=== PATIENT | male | born 1950 | race Caucasian/White ===

== ENCOUNTER 2020-01-11 18:55 | Emergency (ER) | payer MEDICARE, BC ==
[2020-01-11] MEDS ORDERED: Sodium Chloride 0.9% 10 ML Syringe FLUSH PRN (19:07)
--- NOTE | 2020-01-11 19:33 | EDM.PDOC ---
ED HPI GENERAL MEDICAL PROBLEM - General Chief Complaint: Fever Stated Complaint: CHILLS PER PT Time Seen by Provider: 01/11/20 19:15 Source of Information: Reports: Patient, RN, RN Notes Reviewed History Limitations: Reports: No Limitations - History of Present Illness INITIAL COMMENTS - FREE TEXT/NARRATIVE: Patient presents to ER with complaint of chills, shivering uncontrollably. Patient states the chills began about 5 PM. Patient states he did take Tylenol at approximately 5:30 PM today. Patient denies any cough, shortness of breath, chest pain, nausea, vomiting, diarrhea. Patient states he has has had liver cancer in the past as well as bilateral kidney transplant. She has had his gallbladder removed. Patient states he has become septic in the past. Denies any problems with bowel movements, denies any urinary symptoms such as frequency, urgency, burning with urination. Patient states he was tested for Covid 19 about 1 month ago and that was negative. States he quarantined at home in [place] for 14 days prior to traveling to [place]. Onset: Today, Sudden Location: Reports: Generalized - Related Data Allergies Allergy/AdvReac Type Severity Reaction Status Date / Time No Known Allergies Allergy Verified 01/11/20 19:02 Home Meds: Home Meds Acetaminophen [Tylenol Extra Strength] 1,000 mg PO Q8HR PRN 01/11/20 [History] Aspirin [Halfprin] 81 mg PO DAILY 01/11/20 [History] Bumetanide [Bumex] 1 mg PO DAILY 01/11/20 [History] Doxazosin [Doxazosin Mesylate] 0.5 mg PO BEDTIME 01/11/20 [History] Famotidine 20 mg PO BID 01/11/20 [History] Fluticasone Propionate [Flonase] 2 spray .XX BID PRN 01/11/20 [History] Insulin Glargine,Hum.Rec.Anlog [Basaglar Kwikpen U-100] 20 unit SQ BID 01/11/20 [History] Pravastatin [Pravachol] 20 mg PO BEDTIME 01/11/20 [History] Tacrolimus [Envarsus Xr] 4 mg PO BID 01/11/20 [History] amLODIPine [Norvasc] 5 mg PO BID 01/11/20 [History] cloNIDine [Catapres-TTS 3] 0.3 mg .XX ASDIRECTED 01/11/20 [History] hydrALAZINE [Apresoline] 100 mg PO ASDIRECTED 01/11/20 [History] predniSONE [Prednisone] 5 mg PO DAILY 01/11/20 [History] Past Medical History HEENT History: Reports: Impaired Vision Other HEENT History: wear glasses Cardiovascular History: Reports: High Cholesterol, Hypertension Respiratory History: Reports: None Genitourinary History: Reports: Other (See Below) Other Genitourinary History: kidney transplant 2018 Endocrine/Metabolic History: Reports: Diabetes, Type II Immunologic History: Reports: None Oncologic (Cancer) History: Reports: Liver Other Oncologic History: skin cancer had removed 01/04/20, liver cancer october 2019 - Past Surgical History Head Surgeries/Procedures: Reports: None Social & Family History - Tobacco Use Smoking Status *Q: Never Smoker - Recreational Drug Use Recreational Drug Use: No ED ROS GENERAL - Review of Systems Review Of Systems: Comprehensive ROS is negative, except as noted in HPI. ED EXAM, GENERAL - Physical Exam Exam: See Below Exam Limited By: No Limitations General Appearance: Alert, WD/WN, Mild Distress (Patient chilling, shivering in bed) Eye Exam: Bilateral Eye: EOMI, Normal Inspection Ears: Normal External Exam, Hearing Grossly Normal Nose: Normal Inspection Throat/Mouth: Normal Inspection, Normal Voice, No Airway Compromise Head: Atraumatic, Normocephalic Neck: Normal Inspection, Supple, Non-Tender, Full Range of Motion Respiratory/Chest: No Respiratory Distress, Lungs Clear, Normal Breath Sounds, No Accessory Muscle Use, Chest Non-Tender Cardiovascular: Normal Peripheral Pulses, Regular Rate, Rhythm, No Edema, No Gallop, No JVD, No Murmur, No Rub Peripheral Pulses: 2+: Radial (L), Radial (R) GI/Abdominal: Normal Bowel Sounds, Soft, Non-Tender (Male) Exam: Deferred Rectal (Males) Exam: Deferred Back Exam: Normal Inspection, Full Range of Motion, NT Extremities: Normal Inspection, Normal Range of Motion, Non-Tender, No Pedal Edema, Normal Capillary Refill Neurological: Alert, Oriented, CN II-XII Intact, Normal Cognition, Normal Gait, Normal Reflexes, No Motor/Sensory Deficits Psychiatric: Normal Affect, Normal Mood Skin Exam: Warm, Dry, Intact, Normal Color, No Rash Lymphatic: No Adenopathy Course - Vital Signs Last Recorded V/S: Last Vital Signs Temp 102.5 F H 01/11/20 20:30 Pulse 91 01/11/20 19:03 Resp 20 01/11/20 19:03 BP 151/92 H 01/11/20 19:03 Pulse Ox 98 01/11/20 19:03 - Orders/Labs/Meds Orders: Active Orders 24 hr Category Date Time Status Peripheral IV Care [RC] . DIRECTED Care 01/11/20 19:08 Active CULTURE BLOOD [BC] Stat Lab 01/11/20 19:15 Results CULTURE BLOOD [BC] Stat Lab 01/11/20 19:25 Received UA RFX BUD AND CULT IF INDIC [URIN] Stat Lab 01/11/20 19:07 Ordered Sodium Chloride 0.9% [Saline Flush] Med 01/11/20 19:07 Active 10 ml FLUSH ASDIRECTED PRN Blood Culture x2 Reflex Set [OM.PC] Stat Oth 01/11/20 19:08 Ordered Peripheral IV Insertion Adult [OM.PC] Stat Oth 01/11/20 19:07 Ordered Medication Orders Sodium Chloride (Saline Flush) 10 ml FLUSH ASDIRECTED PRN PRN Reason: Keep Vein Open Last Admin: 01/11/20 19:27 Dose: 10 ml Documented by: MAGGIE Labs: Laboratory Tests 01/11/20 01/11/20 01/11/20 Range/Units 19:15 19:15 19:15 WBC 10.7 H (5.0-10.0) 10^3/uL RBC 4.27 L (4.6-6.2) 10^6/uL Hgb 11.7 L (14.0-18.0) g/dL Hct 35.4 L (40.0-54.0) % MCV 82.9 (80-100) fL MCH 27.4 (27.0-34.0) pg MCHC 33.1 (33.0-35.0) g/dL Plt Count 172 (150-450) 10^3/uL Neut % (Auto) 88.3 H (42.2-75.2) % Lymph % (Auto) 9.0 L (20.5-50.1) % Preston % (Auto) 2.2 (2-8) % Eos % (Auto) 0.4 L (1.0-3.0) % Baso % (Auto) 0.1 (0.0-1.0) % Sodium 141 (136-145) mmol/L Potassium 5.0 (3.5-5.1) mmol/L Chloride 107 (98-107) mmol/L Carbon Dioxide 21 (21-32) mmol/L Anion Gap 18.0 H (7-13) mEq/L BUN 61 H (7-18) mg/dL Creatinine 3.57 H (0.70-1.30) mg/dL Est Cr Clr Drug Dosing 20.08 mL/min Estimated GFR (MDRD) 17 BUN/Creatinine Ratio 17.1 (No establ ref range) Glucose 137 H (74-99) mg/dL Lactic Acid 1.2 (0.4-2.0) mmol/L Calcium 8.9 (8.5-10.1) mg/dL Total Bilirubin 0.6 (0.2-1.0) mg/dL AST 18 (15-37) U/L ALT 34 (16-63) U/L Alkaline Phosphatase 157 H (46-116) U/L Total Protein 7.6 (6.4-8.2) g/dL Albumin 4.2 (3.4-5.0) g/dL Globulin 3.4 Albumin/Globulin Ratio 1.2 SARS-CoV-2 RNA (RT-PCR) (NEGATIVE) 01/10/ Range/Units 20:15 WBC (5.0-10.0) 10^3/uL RBC (4.6-6.2) 10^6/uL Hgb (14.0-18.0) g/dL Hct (40.0-54.0) % MCV (80-100) fL MCH (27.0-34.0) pg MCHC (33.0-35.0) g/dL Plt Count (150-450) 10^3/uL Neut % (Auto) (42.2-75.2) % Lymph % (Auto) (20.5-50.1) % Preston % (Auto) (2-8) % Eos % (Auto) (1.0-3.0) % Baso % (Auto) (0.0-1.0) % Sodium (136-145) mmol/L Potassium (3.5-5.1) mmol/L Chloride (98-107) mmol/L Carbon Dioxide (21-32) mmol/L Anion Gap (7-13) mEq/L BUN (7-18) mg/dL Creatinine (0.70-1.30) mg/dL Est Cr Clr Drug Dosing mL/min Estimated GFR (MDRD) BUN/Creatinine Ratio (No establ ref range) Glucose (74-99) mg/dL Lactic Acid (0.4-2.0) mmol/L Calcium (8.5-10.1) mg/dL Total Bilirubin (0.2-1.0) mg/dL AST (15-37) U/L ALT (16-63) U/L Alkaline Phosphatase (46-116) U/L Total Protein (6.4-8.2) g/dL Albumin (3.4-5.0) g/dL Globulin Albumin/Globulin Ratio SARS-CoV-2 RNA (RT-PCR) Negative (NEGATIVE) Meds: Medications Generic Name Dose Route Start Last Admin Trade Name Freemelia PRN Reason Stop Dose Admin Sodium Chloride 10 ml 01/11/20 19:07 01/11/20 19:27 Saline Flush FLUSH 10 ml ASDIRECTED PRN Administration Keep Vein Open Discontinued Medications Generic Name Dose Route Start Last Admin Trade Name Freq PRN Reason Stop Dose Admin Acetaminophen 650 mg 01/11/20 20:27 01/11/20 20:30 Tylenol RECTAL 01/11/20 20:28 650 mg NOW STA Administration Acetaminophen 325 mg 01/11/20 20:28 01/11/20 20:31 Tylenol RECTAL 01/11/20 20:29 325 mg NOW ONE Administration Sodium Chloride 1,000 mls @ 999 mls/hr 01/11/20 19:49 01/11/20 20:15 Normal Saline IV 01/11/20 20:49 999 mls/hr .BOLUS ONE Infusion Piperacillin Sod/Tazobactam 100 mls @ 200 mls/hr 01/11/20 20:06 01/11/20 20:26 Sod 3.375 gm/ Sodium Chloride IV 01/11/20 20:35 200 mls/hr ONETIME ONE Administration Metoclopramide HCl 10 mg 01/11/20 20:15 01/11/20 20:24 Reglan IVPUSH 01/11/20 20:16 10 mg ONETIME ONE Administration Ondansetron HCl 4 mg 01/11/20 19:56 01/11/20 19:59 Zofran IVPUSH 01/11/20 19:57 4 mg ONETIME ONE Administration Ondansetron HCl 4 mg 01/11/20 19:57 01/11/20 20:34 Zofran IV 01/11/20 19:58 Not Given ONETIME ONE - Radiology Interpretation Free Text/Narrative:: Chest xray: PROCEDURE INFORMATION: Exam: XR Chest, 1 View Exam date and time: 01/11/2020 7:54 PM Age: 69 years old Clinical indication: Fever; Additional info: Fever/chills TECHNIQUE: Imaging protocol: XR of the chest Views: 1 view. COMPARISON: No relevant prior studies available. FINDINGS: Lungs: No suspicious pulmonary nodules or areas of lung consolidation. Pleural space: Costophrenic angles are sharp. No pneumothorax. Heart/Mediastinum: Mild cardiac silhouette enlargement. Bones/joints: Age appropriate. IMPRESSION: 1. No acute pulmonary findings. 2. Mild cardiac silhouette enlargement. Have equal down Thank you for allowing us to participate in the care of your patient. Dictated and Authenticated by: Jarad Titus MD 01/11/2020 8:10 PM Central Time ([place] & [place]) See rad report - Re-Assessments/Exams Free Text/Narrative Re-Assessment/Exam: 01/11/20 21:46 Patient's temperature continues to rise. Vomiting lessens with medications. Discussed patient case with Dr. Galvan who agreed to accept the patient for transfer to [facility]. Departure - Departure Time of Disposition: 21:47 Disposition: DC/Tfer to Acute Hospital 02 Condition: Poor Clinical Impression: Fever of unknown origin (FUO) Vomiting Qualifiers: Vomiting type: unspecified Vomiting Intractability: non-intractable Nausea presence: with nausea Qualified Code(s): R11.2 - Nausea with vomiting, u nspecified - Discharge Information *PRESCRIPTION DRUG MONITORING PROGRAM REVIEWED*: No *COPY OF PRESCRIPTION DRUG MONITORING REPORT IN PATIENT SHAHNAZ: No Forms: ED Department Discharge, Interfacility Transfer EMTALA Sepsis Event Note (ED) - Evaluation Sepsis Screening Result: No Definite Risk - Focused Exam Vital Signs: Vital Signs Temp Temp Pulse Resp BP Pulse Ox 01/11/20 20:30 102.5 F H 01/11/20 20:26 102.5 F H 01/11/20 19:03 99.7 F 91 20 151/92 H 98 - My Orders Last 24 Hours: My Active Orders 01/11/20 19:07 UA RFX BUD AND CULT IF INDIC [URIN] Stat Sodium Chloride 0.9% [Saline Flush] 10 ml FLUSH ASDIRECTED PRN Peripheral IV Insertion Adult [OM.PC] Stat 01/11/20 19:08 Peripheral IV Care [RC] . DIRECTED Blood Culture x2 Reflex Set [OM.PC] Stat 01/11/20 19:15 CULTURE BLOOD [BC] Stat 01/11/20 19:25 CULTURE BLOOD [BC] Stat - Assessment/Plan Last 24 Hours: My Active Orders 01/11/20 19:07 UA RFX BUD AND CULT IF INDIC [URIN] Stat Sodium Chloride 0.9% [Saline Flush] 10 ml FLUSH ASDIRECTED PRN Peripheral IV Insertion Adult [OM.PC] Stat 01/11/20 19:08 Peripheral IV Care [RC] . DIRECTED Blood Culture x2 Reflex Set [OM.PC] Stat 01/11/20 19:15 CULTURE BLOOD [BC] Stat 01/11/20 19:25 CULTURE BLOOD [BC] Stat
[2020-01-11] MEDS ORDERED: Sodium Chloride 0.9% 1,000 ML IV ONE (19:49)
[2020-01-11] MEDS ORDERED: Ondansetron 4 MG/2 ML SDV IVPUSH ONE (19:56)
[2020-01-11] MEDS ORDERED: Ondansetron 4 MG/2 ML SDV IV ONE (19:57)
[2020-01-11] MEDS ORDERED: Piperacillin/Tazobactam 3.375 GM in Sodium Chloride 0.9% 100 ML IV ONE (20:06)
--- NOTE | 2020-01-11 20:10 | CR ---
PROCEDURE INFORMATION: Exam: XR Chest, 1 View Exam date and time: 01/11/2020 7:54 PM Age: 69 years old Clinical indication: Fever; Additional info: Fever/chills TECHNIQUE: Imaging protocol: XR of the chest Views: 1 view. COMPARISON: No relevant prior studies available. FINDINGS: Lungs: No suspicious pulmonary nodules or areas of lung consolidation. Pleural space: Costophrenic angles are sharp. No pneumothorax. Heart/Mediastinum: Mild cardiac silhouette enlargement. Bones/joints: Age appropriate. IMPRESSION: 1. No acute pulmonary findings. 2. Mild cardiac silhouette enlargement. Have equal down
[2020-01-11] MEDS ORDERED: Metoclopramide 10 MG/2 ML SDV IVPUSH ONE (20:15)
[2020-01-11] MEDS ORDERED: Acetaminophen 650 MG Supp RECTAL STA (20:27)
[2020-01-11] MEDS ORDERED: Acetaminophen 325 MG Supp RECTAL ONE (20:28)
== END 2020-01-11 21:46 ==
LOC: DL.ED 18:55
DX: R50.9 Fever, unspecified (principal); R11.2 Nausea with vomiting, unspecified; Z20.828 Contact with and (suspected) exposure to other viral communicable diseases; I10 Essential (primary) hypertension; E78.00 Pure hypercholesterolemia, unspecified; E11.9 Type 2 diabetes mellitus without complications; Z79.4 Long term (current) use of insulin; Z79.899 Other long term (current) drug therapy
CPT/HCPCS: 36415; 71045; 80053; 83605; 85025; 87040; 87077; 96361; 96365; 96375; 99285; A9270; J2405; J2543; J2765; J7030; J7050; U0002